=== PATIENT | female | born 1980 | race African-American/Black ===

== ENCOUNTER 2021-01-05 09:31 | Emergency (ER) | payer OTHER ==
[2021-01-05] MEDS ORDERED: Ketorolac 30 MG/ML SDV IM ONE (09:56)
--- NOTE | 2021-01-05 10:08 | EDM.PDOC ---
ED HPI GENERAL MEDICAL PROBLEM - General Chief Complaint: Upper Extremity Injury/Pain Stated Complaint: HURT LEFT HAND Time Seen by Provider: 01/05/21 09:36 Source of Information: Reports: Patient - History of Present Illness INITIAL COMMENTS - FREE TEXT/NARRATIVE: Jackie is a 40 y/o female who comes to the ER with left hand pain. 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 No previous injury. Left Finger-Middle Pain Score (Numeric/FACES): 5 - Related Data Allergies Allergy/AdvReac Type Severity Reaction Status Date / Time No Known Allergies Allergy Verified 01/05/21 10:00 Home Meds: Home Meds Hydrocodone/Acetaminophen [HYDROcodone-Acetaminophen 10-325 MG] 1 each PO Q4H PRN #15 tablet 01/05/21 [Rx] Review of Systems - Review of Systems Review Of Systems: See Below Constitutional: Reports: No Symptoms Eyes: Reports: No Symptoms Ears: Reports: No Symptoms Nose: Reports: No Symptoms Mouth/Throat: Reports: No Symptoms Respiratory: Reports: No Symptoms Cardiovascular: Reports: No Symptoms GI/Abdominal: Reports: No Symptoms Genitourinary: Reports: No Symptoms Musculoskeletal: Reports: Hand Pain Skin: Reports: No Symptoms Neurological: Reports: No Symptoms Psychiatric: Reports: No Symptoms ED EXAM, GENERAL - Physical Exam Exam: See Below General Appearance: Alert, WD/WN, No Apparent Distress (Adult female, she is holding her left hand.) Ears: Hearing Grossly Normal Nose: Normal Inspection Throat/Mouth: Normal Voice Head: Atraumatic, Normocephalic Neck: Supple Respiratory/Chest: No Respiratory Distress (Female) Exam: Deferred Rectal (Female) Exam: Deferred Extremities: Other (Left hand swollen, ROM limited due to pain.) Neurological: Alert, Oriented, CN II-XII Intact, Normal Cognition, Normal Gait Skin Exam: Warm, Dry, Intact, Normal Color Lymphatic: No Adenopathy Course - Vital Signs Last Recorded V/S: Last Vital Signs Temp 36.4 C 01/05/21 09:33 Pulse 80 01/05/21 09:33 Resp 18 01/05/21 09:33 BP 109/72 10/17/21 09:33 Pulse Ox 98 01/05/21 09:33 - Orders/Labs/Meds Orders: Active Orders 24 hr Category Date Time Status Hand Comp Min 3V Lt [CR] Stat Exams 01/05/21 09:56 Ordered Meds: Medications Discontinued Medications Generic Name Dose Route Start Last Admin Trade Name Freq PRN Reason Stop Dose Admin Ketorolac Tromethamine 30 mg 01/05/21 09:56 Ketorolac 30 Mg/Ml Sdv IM 01/05/21 09:57 ONETIME ONE - Radiology Interpretation Free Text/Narrative:: XR Left Hand 3V=midshaft fx left 3rd proximal phalanx Departure - Departure Time of Disposition: 10:54 Disposition: DC/Tfer W/I Hosp To Swing 61 Condition: Good Clinical Impression: Work related injury Phalanx, proximal fracture of finger Qualifiers: Encounter type: initial encounter Finger: middle finger Fracture type: closed Fracture alignment: nondisplaced Laterality: left Qualified Code(s): S62.643A - Nondisplaced fracture of proximal phalanx of left middle finger, initial encounter for closed fracture - Discharge Information *PRESCRIPTION DRUG MONITORING PROGRAM REVIEWED*: No *COPY OF PRESCRIPTION DRUG MONITORING REPORT IN PATIENT SHAMA: No Prescriptions: Hydrocodone/Acetaminophen [HYDROcodone-Acetaminophen 10-325 MG] 1 each PO Q4H PRN #15 tablet PRN Reason: Pain Instructions: Finger Fracture, Adult Additional Instructions: -Ibuprofen 400mg oral every 6 hours as needed -Hydrocodone/APAP 10mg/325mg 1 tablet oral every 6 hours as needed for pain #10(ER) #15 (Rx) -Finger splint with JACOB wrap as instructed. You may find a better finger splint at a local pharmacy. -Apply ice as able -Keep the affected extremity elevated as much as possible -Follow up with your PCP at home in 1 week for recheck and follow up xray. -Return to the ER as needed for any concerns -Complete all necessary work injury forms with your employer. Sepsis Event Note (ED) - Focused Exam Vital Signs: Vital Signs Temp Pulse Resp BP Pulse Ox 01/05/21 09:33 36.4 C 80 18 109/72 98 - Problem List & Annotations (1) Phalanx, proximal fracture of finger SNOMED Code(s): 370947893 Code(s): S62.619A - DISP FX OF PROXIMAL PHALANX OF UNSP FINGER, INIT FOR CLOS FX Status: Acute Current Visit: Yes Annotation/Comment:: Finger splint applied. Rx given for Hydrocodone/APAP. Patient to follow with PCP when she is back home or see nearest Urgent Care provider. Qualifiers: Encounter type: initial encounter Finger: middle finger Fracture type: closed Fracture alignment: nondisplaced Laterality: left Qualified Code(s): S62.643A - Nondisplaced fracture of proximal phalanx of left middle finger, initial encounter for closed fracture - Problem List Review Problem List Initiated/Reviewed/Updated: Yes - My Orders Last 24 Hours: My Active Orders 01/05/21 09:56 Hand Comp Min 3V Lt [CR] Stat - Assessment/Plan Last 24 Hours: My Active Orders 01/05/21 09:56 Hand Comp Min 3V Lt [CR] Stat
--- NOTE | 2021-01-05 10:39 | CR ---
[id number] RAD/RAD Hand Left 3V EXAM: 3 VIEWS LEFT HAND. INDICATION: LEFT HAND SWELLING. COMPARISON: None. DISCUSSION: The minimally displaced impacted midshaft fracture of the left third proximal phalanx. No other fractures are identified. No dislocation. IMPRESSION: 1. As above. Nico Acosta DO 01/05/21 1037 Thank you for allowing us to participate in the care of your patient.
[2021-01-05] MEDS ORDERED: Take Home: Acetaminophen/HYDROcodone 325-10 MG, 5 Tab Pack PO ONE (10:55)
== END 2021-01-05 11:08 | disposition home or self-care (01) ==
LOC: VM.ED 09:31
DX: S62.643A Nondisplaced fracture of proximal phalanx of left middle finger, initial encounter for closed fracture (principal); V69.9XXA Occupant (driver) (passenger) of heavy transport vehicle injured in unspecified traffic accident, initial encounter; Y92.89 Other specified places as the place of occurrence of the external cause; Y99.0 Civilian activity done for income or pay
CPT/HCPCS: 73130; 96372; 99283; A9270; J1885